=== PATIENT | female | born 2000 | race African-American/Black ===

== ENCOUNTER 2023-07-09 14:42 | Outpatient (CLI) | payer MEDICAID, SELFPAY | END 2023-07-09 14:43 | disposition home or self-care (01) | LOC: NFLDUCREF 14:42 | PROVIDERS: Visit Provider Nurse Practitioner Family | DX: L03.90 Cellulitis, unspecified (principal) | CPT/HCPCS: 87070; 87186 ==

== ENCOUNTER 2024-06-13 17:26 | Emergency (ER) | payer MEDICAID, SELFPAY ==
[2024-06-13 17:29] VITALS: BP 107/76; PULSE 71; RESP 20; TEMP 36.7; O2SAT 99; BMI 25.1
--- OUTSIDE RECORDS SUMMARY | 2024-06-13 17:29 | XMS_ITS | Clinical Summary ---
Author Organization [facility] Address [place], [place] [address] Care Team Providers Care Die Drawing Checker Name Role Phone Tiffanie Knox NP Primary Care Provider Allergies No known active allergies Medications No known medications Immunizations Name Administration Dates Next Due Tdap 04/05/2022 Social History Tobacco Use Types Packs/Day Years Used Date Smoking Tobacco: Never Smokeless Tobacco: Never Tobacco Cessation:Counseling Given: Not Answered Alcohol Use Standard Drinks/Week Comments Never 0 (1 standard drink = 0.6 oz pur e alcohol) PHQ-2 Answer Date Recorded PHQ-2 TOTAL SCORE 0 03/28/2023 Comments No Sex and Gender Information Value Date Recorded Sex Assigned at Not on file Legal Sex Female 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 Gender Identity Not on file Sexual Orientation Not on file Obstetrics History Last Filed Vital Signs Vital Sign Reading Time Taken Comments Blood Pressure 108/69 04/25/2023 4:07 PM AVIATION ORDNANCE OFFICER Pulse 82 04/25/2023 4:07 PM AVIATION ORDNANCE OFFICER Temperature 36.8 C (98.2 F) 04/25/2023 4:07 PM AVIATION ORDNANCE OFFICER Respiratory Rate 14 04/25/2023 4:07 PM AVIATION ORDNANCE OFFICER Oxygen Saturation 99% 04/25/2023 4:07 PM AVIATION ORDNANCE OFFICER Inhaled Oxygen Concentration - - Weight 88.5 kg (195 lb) 04/25/2023 4:07 PM AVIATION ORDNANCE OFFICER Height 182.9 cm (6') 03/28/2023 2:31 PM CDT Body Mass Index 26.45 03/28/2023 2:31 PM CDT Plan of Treatment Health Maintenance Due Date Last Done Comments HIV for age 15-65 2016 HPV series for age 9-26 (1 - 3-dose series) 2016 Hepatitis C screening for ag e 18-79 12/24/2019 Pap test for age 21-65 2022 COVID-19 vaccine series (2023- season) 2024 Influenza for age 9-49 01/29/2024 BMI (ht and wt on same day) for age 18+ 03/28/2024 03/28/2023 Depression screening for age 12+ 03/28/2024 03/28/20 23 Tetanus booster 04/05/2032 04/05/2022 Tdap Completed 04/05/2022 Pneumococcal series for age 6-49 Aged Out No longer eligible based on patient's age to complete this topic Insurance [facility] Care Teams Die Drawing Checker Relationship Specialty Start Date End Date Tiffanie Knox NP [address] [place] [address] PCP - General Nurse Practitioner - Family 03/29/23
[2024-06-13 18:22] LABS: PCR FLU A Negative PCR FLU A (Negative); PCR FLU B Negative PCR FLU B (Negative); PCR RSV Negative PCR RSV (Negative); SARS PCR* Negative SARS-CoV-2 (Negative)
[2024-06-13 19:35] VITALS: BP 105/74; RESP 20; TEMP 36.7; O2SAT 99
--- NOTE | 2024-06-13 19:49 | ED.GENADULT ---
HPI - General Adult General Date Seen: 06/13/24 Chief complaint: Fever Stated complaint: difficulty breathing, fever Time Seen by Provider: 06/13/24 19:32 History of Present Illness HPI narrative: 23 yo F with a history of an abscess in her axilla, history of 2 previous COVID infections, but otherwise healthy. She presents to the ER today with concern for sore throat, cough, nasal congestion, body aches, fatigue and also loss of sense of taste and smell. Symptoms started a couple of days ago with itchy throat and a sensation that she might be about to develop a cold. Since then other symptoms as developed. She is concerned that she may have COVID because she has lost her sense of taste and smell. This is happened with her previous COVID infections. Overall she is breathing easily here in the ER. Cough is nonproductive. She is not having nausea or vomiting or dehydration. 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 She is an occasional smoker. No history of asthma or COPD. Related Data Home Medications ?Medication ?Instructions ?Recorded ?Confirmed No Known Home Medications 06/13/24 06/13/24 Allergies Allergy/AdvReac Type Severity Reaction Status Date / Time No Known Drug Allergies Allergy Verified 07/09/23 13:02 [facility] Medical History (Updated 06/13/24 @ 21:37 by Beny Haro MD) No significant past medical history Surgical History (Updated 06/13/24 @ 19:36 by Emerson Vale RN) No significant past surgical history Social History Smoking Status: Never smoker Second hand tobacco smoke exposure: No How often do you have a drink containing alcohol: never AUDIT-C Alcohol total score: 0 Non-prescribed substance use: denies use Exam Narrative: Exam Narrative: Constitutional: Appears well-developed and well-nourished. Alert. Conversant and polite. Non toxic. HENT: Head: Atraumatic. Nose: Nose normal. TMs and canals normal bilaterally. Mouth/Throat: Oral mucosa is clear and moist. no trismus. Pharynx normal. Tonsils symmetric. No tonsillar enlargement, erythema, or exudate. Eyes: Conjunctivae normal. EOM normal. Pupils equal, round, and reactive to light. No scleral icterus. Neck: Normal range of motion. Neck supple. No tracheal deviation present. Cardiovascular: Normal rate, regular rhythm. No gallop. No friction rub. No murmur heard. Symmetric radial artery pulses Pulmonary/Chest: Effort normal. No stridor. No respiratory distress. No wheezes. No rales. No rhonchi . No tenderness. Musculoskeletal: RUE: Normal range of motion. No tenderness. No deformity LUE: Normal range of motion. No tenderness. No deformity RLE: Normal range of motion. No edema. No tenderness. No deformity LLE: Normal range of motion. No edema. No tenderness. No deformity Lymph: No cervical adenopathy. Neurological: Alert and oriented to person, place, and time. Normal strength. CN II-VII intact. No sensory deficit. GCS eye subscore is 4. GCS verbal subscore is 5. GCS motor subscore is 6. Normal coordination Skin: Skin is warm and dry. No rash noted. No pallor. Normal capillary refill. Psychiatric: Normal mood. Normal affect. Const: Vital Signs, click to edit/add: Vital Signs - 24 hr 06/13/24 17:29 06/13/24 19:35 06/13/24 20:04 Temperature 98.0 F 98.0 F 98.0 F Pulse Rate [Pulse Oximeter] 71 75 Respiratory Rate 20 20 20 Blood Pressure [Le ft Arm] 105/74 Blood Pressure [Ri ght Upper Arm] 107/76 110/74 Pulse Oximetry 99 99 99 Oxygen Delivery Me thod Room Air Room Air Room Air 06/13/24 21:46 Temperature 98.0 F Pulse Rate [Pulse Oximeter] 75 Respiratory Rate 20 Blood Pressure [Le ft Arm] Blood Pressure [Ri ght Upper Arm] 110/74 Pulse Oximetry Oxygen Delivery Me thod Course Vital Signs Vital signs: Initial Vital Signs Temperature 98.0 F 06/13/24 17:29 Temperature Source Temporal Artery Scan 06/13/24 17:29 Pulse Rate 71 06/13/24 17:29 Pulse Rhythm Regular 06/13/24 17:29 Respiratory Rate 20 06/13/24 17:29 Blood Pressure 107/76 06/13/24 17:29 Blood Pressure Mean 86 06/13/24 17:29 Blood Pressure Position Sitting 06/13/24 17:29 Pulse Oximetry 99 06/13/24 17:29 Oxygen Delivery Method Room Air 06/13/24 17:29 Vital Signs Temperature 98.0 F 06/13/24 17:29 Pulse Rate 71 06/13/24 17:29 Respiratory Rate 20 06/13/24 17:29 Blood Pressure 107/76 06/13/24 17:29 Pulse Oximetry 99 06/13/24 17:29 Oxygen Delivery Method Room Air 06/13/24 17:29 Temperature 98.0 F 06/13/24 21:46 Pulse Rate 75 06/13/24 21:46 Respiratory Rate 20 06/13/24 21:46 Blood Pressure 110/74 06/13/24 21:46 Pulse Oximetry 99 06/13/24 20:04 Oxygen Delivery Method Room Air 06/13/24 20:04 Medical Decision Making MDM Narrative Medical decision making narrative: This patient presents for evaluation of cough, fever, body aches, and loss of sense of taste and smell. This is consistent with an upper respiratory tract infection, and with her anosmia, suspicious for COVID.. Viral testing negative for COVID, influenza, RSV. I wonder if this may be a false negative. In any case if she did have COVID, treatment be supportive and isolation. Since she is young and healthy, Paxlovid is not recommended by CDC guidelines. There is no signs at this point of serious bacterial infection such as OM, RPA, epiglottitis, BOILERMAKER LOFTSMAN, strep pharyngitis, pneumonia, sinusitis, meningitis, bacteremia, serious bacterial infection. Given clear lungs, fever curve, no hypoxia and no respiratory distress I do not feel a CXR is indicated at this point as the probability of bacterial pneumonia is very unlikely. There are no gastrointestinal symptoms at this point and no signs of dehydration. Close followup with primary care physician is indicated. Return to ED for fever > 103, protracted vomiting, confusion, or other worsening. Lab Data Labs: Lab Results 06/13/24 Range/Units 17:29 SARS-CoV-2 (PCR) Negative SARS-CoV-2 (Negative) Influenza Type A (PCR) Negative PCR FLU A (Negative) Influenza Type B (PCR) Negative PCR FLU B (Negative) RSV (PCR) Negative PCR RSV (Negative) Discharge Plan Discharge Clinical Impression: URI (upper respiratory infection) Patient Disposition: Home, Self-Care Condition: Stable Instructions: Upper Respiratory Infection (DC) Additional Instructions: As we discussed, your COVID and influenza test is negative today. However your symptoms strongly suggest that you have COVID. I recommend you stay home for the next couple of days so the do not spread your infection. You can go back to work after you have been afebrile for 24 hours and UR overall starting to feel better. You should wear mask when your around other people until 06/20/2024. If you have worsening symptoms, please come back to the ER or see your doctor right away. Prescriptions: No Action No Known Home Medications Follow Up/Referrals: Provider,Not a Local [Primary Care Provider] - Stand Alone Forms: [employer] Info Instructions
[2024-06-13 20:04] VITALS: BP 110/74; PULSE 75; RESP 20; TEMP 36.7; O2SAT 99
--- OUTSIDE RECORDS SUMMARY | 2024-06-13 21:21 | XMS_ITS | Continuity of Care Document ---
Author Name [facility] Address Unknown Organization Unknown Address Unknown Procedures FILTER APPLIED:Only known Procedures with Onset Date within the last 5 years Procedure Date Procedure Provider Additional Inform ation Status MICROBE SUSCEPTIBLE AARON (99624) Completed CULTURE OTHR SPECIMN AEROBIC (12730) Completed Encounters FILTER APPLIED:Only known Encounters with Admission Date within the last 5 years Encounter Location Admission Discharge Billing Code Consultant [facility] Dewayne zepeda
--- OUTSIDE RECORDS SUMMARY | 2024-06-13 21:21 | XMS_ITS | Clinical Summary ---
Author Organization [facility] Address [place], [place] [address] Care Team Providers Care Converter Skimmer Name Role Phone Tiffanie Knox NP Primary [...] on file Legal Sex Female 7:21 PM CELL INSTALLER Gender Identity Not on file Sexual Orientation Not on file Obstetrics History Last Filed Vital Signs Vital Sign Reading Time Taken Comments Blood Pressure 108/69 04/25/2023 4:07 PM CELL INSTALLER Pulse 82 04/25/2023 4:07 PM CELL INSTALLER Temperature 36.8 C (98.2 F) 04/25/2023 4:07 PM CELL INSTALLER Respiratory Rate 14 04/25/2023 4:07 PM CELL INSTALLER Oxygen Saturation 99% 04/25/2023 4:07 PM CELL INSTALLER Inhaled Oxygen Concentration - - Weight 88.5 kg (195 lb) 04/25/2023 4:07 PM CELL INSTALLER Height 182.9 cm (6') 03/28/2023 2:31 PM [...] patient's age to complete this topic Insurance [facility] Care Teams Converter Skimmer Relationship Specialty Start Date End Date Tiffanie Knox NP [address] [place] [address] PCP - General Nurse Practitioner - Family 03/29/23
[2024-06-13 21:46] VITALS: BP 110/74; PULSE 75; RESP 20; TEMP 36.7
== END 2024-06-13 21:46 | disposition home or self-care (01) ==
PROVIDERS: Emergency Provider Emergency Medicine
DX: J06.9 Acute upper respiratory infection, unspecified (principal)
CPT/HCPCS: 87631; 99282; 99283